=== PATIENT | male | born 1975 | race African-American/Black ===

== ENCOUNTER 2016-12-24 12:46 | Emergency (ER) | payer SELFPAY ==
[2016-12-24] MEDS ORDERED: Ibuprofen TAB* 800 MG PO ONE (13:20)
--- NOTE | 2016-12-24 13:24 | ED ---
Lower Extremity - HPI Summary HPI Summary: Pt here w/ Rt ankle/foot pain/swelling s/p fall today. 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 Landed on Rt knee but denies pain here - reports this is simply "sore" - able to move well w/o pain or restriction. Denies any other injury, including head injury. Pain is worse w/ moving toes and ankle, with weight bearing and palpation. Denies numbness, tingling, weakness, abrasion. - History of Current Complaint Chief Complaint: EDExtremityLower Stated Complaint: RT ANKLE INJURY Time Seen by Provider: 12/24/16 13:05 Hx Obtained From: Patient - Allergies/Home Medications Allergies/Adverse Reactions: Allergies Allergy/AdvReac Type Severity Reaction Status Date / Time seasonal Allergy Sneezing Uncoded 10/07/14 10:29 Home Medications: Home Medications Cetirizine* [ZyrTEC 10 MG TAB*] 10 mg PO DAILY PRN 12/24/16 [History Confirmed 12/24/16] PMH/Surg Hx/FS Hx/Imm Hx Previously Healthy: Yes Endocrine/Hematology History: Denies: Hx Anticoagulant Therapy, Hx Blood Disorders Neurological History: Reports: Other Neuro Impairments/Disorders - 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, 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 - Surgical History Surgery Procedure, Year, and Place: mole on head removed Infectious Disease History: No Infectious Disease History: Denies: Traveled Outside the [place] in Last 30 Days - Social History Occupation: Employed Full-time - home health aid Alcohol Use: 3-4 drinks three times a week Hx Substance Use: No Substance Use Type: Reports: None Hx Tobacco Use: No Smoking Status (MU): Never Smoked Tobacco Review of Systems Constitutional: Negative Negative: Fatigue Eyes: Negative Negative: Photophobia, Blurred Vision, Diplopia Negative: Chest Pain Negative: Shortness Of Breath Negative: Vomiting, Nausea Positive: no symptoms reported Musculoskeletal: Other - see HPI Positive: Bruising Neurological: Negative Negative: Weakness, Paresthesia, Numbness Psychological: Normal All Other Systems Reviewed And Are Negative: Yes Physical Exam Triage Information Reviewed: Yes Vital Signs On Initial Exam: Initial Vitals Temp Pulse Resp BP Pulse Ox 97.8 F 81 18 129/81 98 12/24/16 13:01 12/24/16 13:01 12/24/16 13:01 12/24/16 13:01 12/24/16 13:01 Vital Signs Reviewed: Yes Appearance: Positive: Well-Appearing, No Pain Distress, Well-Nourished Skin: Positive: Warm, Dry - no mariaelena erythema but appears to have mild ecchymosis over Rt lateral ankle w/ edema Eyes: Positive: Other: - Lt eyelid drooping compared to Rt (baseline) ENT: Positive: Hearing grossly normal Respiratory/Lung Sounds: Positive: Breath Sounds Present Cardiovascular: Positive: Normal, Pulses are Symmetrical in both Upper and Lower Extremities Musculoskeletal: Positive: Limited @ - Rt ankle, toe movements limited d/t pain , swelling Neurological: Positive: Normal, Sensory/Motor Intact, Alert, Oriented to Person Place, Time Psychiatric: Positive: Normal Diagnostics - Vital Signs Vital Signs Temp Pulse Resp BP Pulse Ox 12/24/16 13:01 97.8 F 81 18 129/81 98 - Laboratory Lab Statement: Any lab studies that have been ordered have been reviewed, and results considered in the medical decision making process. Lower Extremity Course/Dx - Course Course Of Treatment: Pt here w/ fall onto Rt foot - pain, swelling, bruising. XR reveals calcaneal fx. Discussed w/ Dr. Lopez who recommends splint, non- weight bearing nad f/u this week. Discussed w/ pt who agrees w/ plan. Also explained importance of elevation and monitoring for s/sx of compartment syndrome. He voices understanding. Does not want meds stronger than ibuprofen or acetaminophen - denies h/o drug abuse but doesn't want this to become an issue. Will return if danger s/sx present. - Diagnoses Provider Diagnoses: Right calcaneal fracture - Physician Notifications Discussed Care Of Patient With: Dr. LOPEZ Discharge - Discharge Plan Condition: Stable Disposition: HOME Patient Education Materials: Calcaneal Fracture (ED) Forms: *Work Release Referrals: All Lopez MD [Medical Doctor] - Additional Instructions: Rest, ice, elevation, and no weight bearing until seen by orthopedics. Use your crutches to avoid weight bearing. Keep splint clean and dry. Call orthopedics today or tomorrow to schedule an appointment. You may take ibuprofen 600mg every 6 hours alternating with acetaminophen 650mg every 6 hours for pain. Keep your leg elevated as high as possible to avoid swelling. *If you develop numbness, skin discoloration or coolness/excess heat of toes, loosen ZULEMA wrap and elevate for 20 minutes and recheck - if symptoms persist, return to ED.
--- NOTE | 2016-12-24 13:54 | RAD ---
HISTORY: Fall, right toe pain COMPARISONS: June 27, 2009 VIEWS: 3, Frontal, lateral, and oblique views of the right foot FINDINGS: BONE DENSITY: Normal. BONES: There is a nondisplaced fracture through the calcaneus with extension to the subtalar joint JOINTS: There is no arthropathy. ALIGNMENT: There is no dislocation. SOFT TISSUES: Unremarkable. OTHER FINDINGS: None. IMPRESSION: NONDISPLACED CALCANEAL FRACTURE
--- NOTE | 2016-12-24 13:54 | RAD ---
HISTORY: Fall, pain, right ankle pain COMPARISONS: Right foot dated December 24, 2016 VIEWS: 3, Frontal, lateral, and oblique views of the right ankle FINDINGS: BONE DENSITY: Normal. BONES: Again noted is a nondisplaced fracture of the calcaneus with extension to the subtalar joint JOINTS: There is no arthropathy. ALIGNMENT: There is no dislocation. SOFT TISSUES: Unremarkable. OTHER FINDINGS: None. IMPRESSION: AGAIN NOTED IS A NONDISPLACED CALCANEAL FRACTURE
[2016-12-24 15:52] VITALS: BP 126/78
== END 2016-12-24 15:58 | disposition home or self-care (01) ==
LOC: ED 12:46
DX: S92.001A Unspecified fracture of right calcaneus, initial encounter for closed fracture (principal); W19.XXXA Unspecified fall, initial encounter; Y93.9 Activity, unspecified; Y92.9 Unspecified place or not applicable
CPT/HCPCS: 99282; A9270-GY

== ENCOUNTER → 2016-12-31 12:29 | Emergency (ER) | payer SELFPAY ==
[2016-12-31 17:36] VITALS: BP 143/86
--- NOTE | 2016-12-31 17:38 | ED ---
Lower Extremity - HPI Summary HPI Summary: Pt here w/ bruising along Rt posterior calf after fracturing heel December 24. Was seen here and provided with cam boot and crutches. He initially was taking ibuprofen and acetaminophen but is only taking ibuprofen now. Feels pain is worse and has developed bruising along calf which is painful. Has been seen by Dr. Delgado who has ordered a CT scan - pending prior authorization. He denies weight bearing but has only been elevating about 4 hours per day. Denies numbness, tingling, weakness. 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, 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 - Surgical History Surgery Procedure, Year, and Place: mole on head removed Infectious Disease History: Denies: Traveled Outside the [place] in Last 30 Days - Social History Occupation: Employed Full-time Lives: With Family Alcohol Use: Occasionally Hx Substance Use: No Substance Use Type: Reports: None Hx Tobacco Use: No Smoking Status (MU): Never Smoked Tobacco Review of Systems Negative: Fever, Chills, Fatigue Negative: Chest Pain Negative: Shortness Of Breath Negative: Vomiting, Nausea Positive: no symptoms reported Musculoskeletal: Other - see HPI Positive: Bruising - see HPI Negative: Weakness, Paresthesia, Numbness Positive: Anxious All Other Systems Reviewed And Are Negative: Yes Physical Exam Triage Information Reviewed: Yes Vital Signs On Initial Exam: Initial Vitals Temp Pulse Resp BP 97.6 F 80 18 143/91 12/31/16 12:32 12/31/16 12:32 12/31/16 12:32 12/31/16 12:32 Vital Signs Reviewed: Yes Appearance: Positive: Well-Appearing, No Pain Distress, Well-Nourished Skin: Positive: Warm, Dry - purpuric ecchymosis tracking along achilles tendon and into calf over Rt posterior tib - TTP - no mariaelena edema; same purpuric ecchymosis (slightly travel coordinator) over Rt anterolateral aspect of tibia - NTTP ENT: Positive: Hearing grossly normal Respiratory/Lung Sounds: Positive: Breath Sounds Present Cardiovascular: Positive: Pulses are Symmetrical in both Upper and Lower Extremities Musculoskeletal: Positive: Strength/ROM Intact - toes, knees, Pain @ - Rt heel Neurological: Positive: Normal, Sensory/Motor Intact, Alert, Oriented to Person Place, Time Psychiatric: Positive: Anxious Diagnostics - Vital Signs Vital Signs Temp Pulse Resp BP Pulse Ox 12/31/16 14:36 97.4 F 78 18 140/86 98 12/31/16 12:32 97.6 F 80 18 143/91 - Laboratory Lab Statement: Any lab studies that have been ordered have been reviewed, and results considered in the medical decision making process. Lower Extremity Course/Dx - Course Course Of Treatment: Thrombus within peroneal vein of Rt LE - since this is not a DVT, no anticoagulation is necessary. Pt to continue NSAID's and discussed changing body mechanics to assist in better blood flow here - elevate more hours of the day, remove boot when elevating in a safe place and move toes and knee to encourage blood return. May apply heat to aid in circulation as well but caution if creates swelling - pt voices understanding and agrees w/ plan. He will f/u w/ PCP (plans to establish tomorrow) and return to ED w/ danger s/ sx. Dr. Delgado (ortho) aware. - Diagnoses Provider Diagnoses: Thrombosis of right peroneal vein Discharge - Discharge Plan Condition: Stable Disposition: HOME Patient Education Materials: Superficial Thrombophlebitis (ED) Referrals: [facility] – [place], [place] [facility] [Outside] No Primary Care Phys,NOPCP [Primary Care Provider] - Additional Instructions: You appear to have a clot in a superficial vein of your right lower extremity. It is advised that you continue NSAID's for pain and swelling, drink plenty of fluid and keep leg elevated as discussed during visit today. It is also important that you remove boot occasionally to allow for better blood flow - move toes and knee to improve circulation. Follow-up with PCP for further assessment. Call tomorrow to schedule an appointment. It is also important that you share this diagnosis with Dr. Delgado. *If you develop fever, chills, chest pain, shortness of breath, bloody cough, return to ED
--- NOTE | 2016-12-31 17:46 | RAD ---
HISTORY: Right calf bruising and pain COMPARISONS: None relevant TECHNIQUE: Multiple transverse and longitudinal ultrasound images were obtained of the right lower extremity from the level of the common femoral vein inferiorly through to the infrapopliteal veins using grayscale, color Doppler, and spectral Doppler imaging with and without compression and with augmentation. Comparison images were obtained of the contralateral common femoral vein. FINDINGS: VEINS: There is occlusive thrombus of the right peroneal veins. There is no extension to the popliteal or suprapopliteal venous system. The remainder of the venous system of the right lower extremity is compressible throughout its course, with normal flow on color Doppler imaging and normal response to augmentation on spectral Doppler imaging. SOFT TISSUES: Unremarkable. OTHER FINDINGS: None. IMPRESSION: RIGHT CALF VEIN THROMBOSIS WITHOUT EXTENSION TO THE POPLITEAL OR SUPRAPOPLITEAL VENOUS SYSTEM
== END | disposition home or self-care (01) ==
LOC: ED 12:29
DX: I82.890 Acute embolism and thrombosis of other specified veins (principal); F41.9 Anxiety disorder, unspecified
CPT/HCPCS: 99282

== ENCOUNTER 2019-03-12 11:17 | Emergency (ER) | payer BC, OTHER ==
[2019-03-12 11:43] VITALS: BP 134/77
--- NOTE | 2019-03-12 12:01 | UC ---
Dental HPI - HPI Summary HPI Summary: Pt presents with c/o left side facial cheek swelling, and c/o of "just not feeling right"that has been intermittent over the last few months. Pt states he woke this morning with c/o of worsening facial cheek swelling and facial pain. Pt has not seen a dentist in 15 years. Pt denies injury, denies, OSORIO, and one sided weakness. - History of Current Complaint Chief Complaint: UCGeneralIllness Stated Complaint: L SIDE JAW COMP Time Seen by Provider: 03/12/19 11:45 Hx Obtained From: Patient Onset/Duration: Gradual Onset, Lasting Hours, Lasting Days, Still Present Severity: Moderate Pain Intensity: 0 Aggravating Factor(s): Nothing - pressure Alleviating Factor(s): Nothing Related History: Swelling - Allergies/Home Medications Allergies/Adverse Reactions: Allergies Allergy/AdvReac Type Severity Reaction Status Date / Time seasonal Allergy Sneezing Uncoded 03/12/19 11:37 PMH/Surg Hx/FS Hx/Imm Hx Previously Healthy: Yes Other History Of: Negative For: Anticoagulant Therapy - NSAID's for Rt heel fx - Surgical History Surgical History: Yes Surgery Procedure, Year, and Place: mole on head removed - Family History Known Family History: Positive: Cardiac Disease - Social History Occupation: Employed Full-time Lives: With Family Alcohol Use: Occasionally Substance Use Type: None Smoking Status (MU): Never Smoked Tobacco Have You Smoked in the Last Year: No Review of Systems All Other Systems Reviewed And Are Negative: Yes Constitutional: Positive: Fatigue Skin: Positive: Negative Eyes: Positive: Negative ENT: Positive: Dental Pain Respiratory: Positive: Negative Cardiovascular: Positive: Negative Gastrointestinal: Positive: Negative Genitourinary: Positive: Negative Motor: Positive: Negative Neurovascular: Positive: Negative Musculoskeletal: Positive: Myalgia - face/ cheek left Neurological: Positive: Negative Psychological: Positive: Negative Is Patient Immunocompromised?: No Physical Exam Triage Information Reviewed: Yes Appearance: Pain Distress Vital Signs: Initial Vital Signs Temp 98.8 F 03/12/19 11:38 Pulse 81 03/12/19 11:38 Resp 16 03/12/19 11:38 BP 134/77 03/12/19 11:38 Pulse Ox 100 03/12/19 11:38 Vital Signs Reviewed: Yes Eye Exam: Normal ENT: Positive: Hearing grossly normal Dental: Positive: Abscess @ - left gum tenderness left upper gum with noted discharge. Neck exam: Normal Respiratory Exam: Normal Musculoskeletal Exam: Normal Neurological Exam: Normal Psychological Exam: Normal Skin Exam: Normal Dental Complaint Course/Dx - Course Course Of Treatment: I discussed with the pt the need to follow up with a dental care provider as soon as possible. Pt verbalized understanding and agreed to plan of care. - Differential Dx/Diagnosis Differential Diagnosis/Dx: Dental Abscess, Dental Caries Provider Diagnosis: Dental abscess Discharge ED - Sign-Out/Discharge Documenting (check all that apply): Patient Departure All imaging exams completed and their final reports reviewed: No Studies - Discharge Plan Condition: Stable Disposition: HOME Prescriptions: Amoxicillin PO (*) [Amoxicillin 875 MG (*)] 875 mg PO Q12H #20 tab Patient Education Materials: Dental Abscess (ED) Referrals: [facility] [place] [facility] [Outside] - If Needed No Primary Care Phys,NOPCP [Primary Care Provider] - Additional Instructions: Please establish care with a dental care provider as soon as possible. - Billing Disposition and Condition Condition: STABLE Disposition: Home
== END 2019-03-12 12:20 | disposition home or self-care (01) ==
LOC: UCCORT 11:17
DX: K05.219 Aggressive periodontitis, localized, unspecified severity (principal)
CPT/HCPCS: 99212; G0463

== ENCOUNTER 2019-06-03 12:19 | Emergency (ER) | payer BC, OTHER ==
[2019-06-03 13:29] VITALS: BP 128/76
--- NOTE | 2019-06-03 14:19 | UC ---
Lower Extremity/Ankle HPI - HPI Summary HPI Summary: 43 yo male s/p inversion injury left ankle yesterday at work able to bear wt painfully no prior ankle issues - History of Current Complaint Chief Complaint: UCLowerExtremity Stated Complaint: L ANKLE INJ Time Seen by Provider: 06/03/19 14:00 Hx Obtained From: Patient Onset/Duration: Sudden Onset Severity Initially: Mild Severity Currently: Mild Pain Intensity: 2 Pain Scale Used: 0-10 Numeric Aggravating Factor(s): Standing, Ambulation Alleviating Factor(s): Rest Able to Bear Weight: Yes Feet (Multiple View): 1 - lat STS - Allergies/Home Medications Allergies/Adverse Reactions: Allergies Allergy/AdvReac Type Severity Reaction Status Date / Time seasonal Allergy Sneezing Uncoded 06/03/19 13:24 PMH/Surg Hx/FS Hx/Imm Hx Previously Healthy: Yes Other History Of: Negative For: Anticoagulant Therapy - NSAID's for Rt heel fx - Surgical History Surgical History: Yes Surgery Procedure, Year, and Place: mole on head removed - Family History Known Family History: Positive: Cardiac Disease Negative: Hypertension, Diabetes - Social History Alcohol Use: Occasionally Substance Use Type: None Smoking Status (MU): Never Smoked Tobacco Have You Smoked in the Last Year: No Review of Systems All Other Systems Reviewed And Are Negative: Yes Constitutional: Positive: Negative Skin: Positive: Negative Eyes: Positive: Negative ENT: Positive: Negative Respiratory: Positive: Negative Cardiovascular: Positive: Negative Gastrointestinal: Positive: Negative Genitourinary: Positive: Negative Motor: Positive: Negative Neurovascular: Positive: Negative Musculoskeletal: Positive: Edema - left lat mall Neurological: Positive: Negative Physical Exam Triage Information Reviewed: Yes Appearance: Well-Appearing, No Pain Distress, Well-Nourished Vital Signs: Initial Vital Signs Temp 98.1 F 06/03/19 13:22 Pulse 76 06/03/19 13:22 Resp 16 06/03/19 13:22 BP 128/76 06/03/19 13:22 Pulse Ox 100 06/03/19 13:22 Vital Signs Reviewed: Yes Eyes: Positive: Conjunctiva Clear ENT: Positive: Hearing grossly normal. Negative: Nasal congestion, Nasal drainage, Trismus, Muffled voice, Hoarse voice Neck: Positive: Supple, Nontender Respiratory: Positive: Lungs clear, Normal breath sounds, No respiratory distress, No accessory muscle use Cardiovascular: Positive: RRR, No Murmur Musculoskeletal: Positive: Edema @ - LM left, achilles intact Neurological: Positive: Alert Psychological Exam: Normal Skin Exam: Normal Lower Extremity Course/Dx - Differential Dx/Diagnosis Provider Diagnosis: Left ankle sprain Discharge ED - Sign-Out/Discharge Documenting (check all that apply): Patient Departure All imaging exams completed and their final reports reviewed: Yes - Discharge Plan Condition: Stable Disposition: HOME Patient Education Materials: Ankle Sprain (ED), R.I.C.E. Treatment (ED) Forms: *Work Release Referrals: Jimmy Queen MD [Medical Doctor] - 1 Week (if not better) - Billing Disposition and Condition Condition: STABLE Disposition: Home
== END 2019-06-03 14:26 | disposition home or self-care (01) ==
LOC: UCCORT 12:19
DX: S93.402A Sprain of unspecified ligament of left ankle, initial encounter (principal); Z91.09 Other allergy status, other than to drugs and biological substances; X50.0XXA Overexertion from strenuous movement or load, initial encounter; Y92.9 Unspecified place or not applicable
CPT/HCPCS: 99213; G0463